=== PATIENT | female | born 1985 | race Native Hawaiian/Other Pacific Islander ===

== ENCOUNTER 2018-06-03 17:56 | Emergency (ER) | payer BC ==
[2018-06-03 18:05] VITALS: RESP 16; O2SAT 99
[2018-06-03 20:38] LABS: HEMOGLOBIN 12.4 g/dL (12.0-16.0); MEAN CELL VOLUME 87.6 fl (81.0-99.0); MEAN CORPUSCULAR HEMOGLOBIN 29.6 pg (27.0-31.0); MEAN CORPUSCULAR HGB CONC 33.8 g/dL (33.0-37.0); RBC 4.19 Mil/uL (3.80-5.20); RED CELL DISTRIBUTION WIDTH 12.2 % (11.5-14.5); WHITE BLOOD COUNT 10.4 K/uL (4.8-10.8)
[2018-06-03 20:53] LABS: BLOOD UREA NITROGEN 8 mg/dl (7-17); CALCIUM 9.6 mg/dL (8.4-10.2); GFR NON-AFRICAN AMERICAN > 60
--- NOTE | 2018-06-03 20:56 | ED PDOC ---
HPI: Female Pain Time Seen by Provider: 06/03/18 19:10 Chief Complaint (Nursing): Female Genitourinary Chief Complaint (Provider): vaginal bleeding and abdominal cramps History Per: Patient History/Exam Limitations: no limitations Onset/Duration Of Symptoms: Hrs (17:30) Current Symptoms Are (Timing): Still Present Quality Of Discomfort: Cramping Associated Symptoms: denies: Fever, Chills, Nausea, Vomiting, Diarrhea Additional Complaint(s): Eli Isabel is a 32 year old female, with a past medical history of bipolar disorder, who presents to the emergency department complaining of having heavy vaginal clotting and lower abdominal cramping onset since 17:30. Patient is [id number] at approximately x10 weeks gestation, LMP was on 03/19/18. Patient states pain and bleeding is subsiding but is still having some active vaginal bleeding. She denies any fever, chills, nausea, vomit or other medial complaints. PMD: None provided. Last Menstral Period: 03/19/18 : 1 Para: 0 Miscarriage: 0 Past Medical History Reviewed: Historical Data, Nursing Documentation, Vital Signs Vital Signs: Last Vital Signs Temp 98.3 F 06/03/18 18:04 Pulse 105 H 06/03/18 18:04 Resp 16 06/03/18 18:04 BP 117/78 06/03/18 18:04 Pulse Ox 99 06/03/18 18:04 - Medical History PMH: No Chronic Diseases - Surgical History Surgical History: No Surg Hx - Family History Family History: States: Unknown Family Hx - Allergies Allergies/Adverse Reactions: Allergies Allergy/AdvReac Type Severity Reaction Status Date / Time Sulfa (Sulfonamide Allergy RASH Verified 06/03/18 18:03 Antibiotics) Review of Systems ROS Statement: Except As Marked, All Systems Reviewed And Found Negative Constitutional: Negative for: Fever, Chills Gastrointestinal: Positive for: Abdominal Pain (cramps). Negative for: Nausea, Vomiting Genitourinary Female: Positive for: Vaginal Bleeding (clotting) Physical Exam - Reviewed Nursing Documentation Reviewed: Yes Vital Signs Reviewed: Yes - Physical Exam Appears: Positive for: No Acute Distress Head Exam: Positive for: ATRAUMATIC, NORMAL INSPECTION, NORMOCEPHALIC Skin: Positive for: Normal Color, Warm, Dry Eye Exam: Positive for: Normal appearance, EOMI, PERRL Neck: Positive for: Normal, Painless ROM Cardiovascular/Chest: Positive for: Regular Rate, Rhythm. Negative for: Murmur Respiratory: Positive for: Normal Breath Sounds. Negative for: Respiratory Distress Gastrointestinal/Abdominal: Positive for: Normal Exam, Soft. Negative for: Tenderness Back: Positive for: Normal Inspection. Negative for: L CVA Tenderness, R CVA Tenderness, Vertebral Tenderness Extremity: Positive for: Normal ROM (upper and lower extremities). Negative for: Deformity, Swelling Neurologic/Psych: Positive for: Alert, Oriented - Laboratory Results Result Diagrams: 06/03/18 20:20 06/03/18 20:20 - ECG O2 Sat by Pulse Oximetry: 99 (RA) Pulse Ox Interpretation: Normal Medical Decision Making Medical Decision Making: Time: 19:10 A/P: 32 y/o female in x10 weeks gestation presenting with vaginal bleeding. Vitals stable, otherwise well appearing but concerned for spontaneous AB vs thre atened AB vs ectopic AB. Initial Plan: --Type and screen --BMP --Beta-HCG, Quantitative --Urine --Urine dipstick --CBC --OB , Limited [US] --Reevaluation 20:58 Obstretrics Ultrasound Findings Uterus Single Live intrauterine gestation. CRL equivalent to 12 wks/0 days gestatioin Gestational sac diameter equivalent to 10 wks/0 days gestation Heart rate: 180 bpm. Ashley-gestational hemorrhage: None. Uterus measures 11.2 x 7.6 x 6 cm. No mass. Cervix Long and closed. No cervical abnormality seen. Right Ovary Measures 2.9 x 2.3 x 2 cm. No mass. Normal flow. Anechoic structure measures 1.2 x 1.3 x 0.9 cm. Left Ovary Not visualized. Free Fluid None. Other Findings None. Impression 1. Single live intrauterine gestation. 2. Right ovarian cystic structure. 22:02 Spoke with patient regarding diagnosis. Patient understands the importance of strict pelvic rest and no exertional activity until cleared by OB. Patient states she has an appointment with OB tomorrow. Scribe Attestation: Documented by Tuan Mattson, acting as a scribe for Michele Bautista MD. Provider Scribe Attestation: All medical record entries made by the Scribe were at my direction and personally dictated by me. I have reviewed the chart and agree that the record accurately reflects my personal performance of the history, physical exam, medical decision making, and the department course for this patient. I have also personally directed, reviewed, and agree with the discharge instructions and disposition. Disposition - Clinical Impression Clinical Impression: Vaginal bleeding during - Disposition Referrals: [facility] Chatterjee [Outside] Disposition: Routine/Home Disposition Time: 22:02 Condition: IMPROVED Additional Instructions: Please followup with your [facility] tomorrow as scheduled. Instructions: Threatened Miscarriage, Bleeding With (DC) Forms: [employer] (Macedonian)
[2018-06-04 01:41] VITALS: BP 118/74; PULSE 72; TEMP 98.4
--- NOTE | 2018-06-04 13:00 | US ---
Date of service: 06/03/2018 PROCEDURE: Limited obstetrical ultrasound HISTORY: 10 wks preg, VB COMPARISON: None TECHNIQUE: Standard protocol for this study/examination. FINDINGS: LMP: 03/19/2018 Prior examinations from the current : None TECHNIQUE: Real-time 2D imaging, duplex and color Doppler. FINDINGS: Cardiac activity: Present Rate: 180.0 BPM Measurements: [place] rump length: 5.40 cm Gestational age based on CRL 12 weeks Gestational age 10 weeks based on gestational sac measurement 4.49 cm Gestational age derived from LMP: 10 weeks 6 days [place] based on LMP: 12/24/2018 [place] based on biometry: 12/23/2018. Gestational concordance documented. Yolk sac not identified Cervix: No Cervical abnormalities: Negative examination for cervical dilatation or effacement. Closed cervix measuring 2.90 cm Subchorionic hemorrhage: None UTERUS: 6 x 7.6 x 11.0 cm. ADNEXA: Right: 2 x 2.3 x 2.9 cm. Simple cyst 1.2 x 1.3 cm. Normal Doppler arterial waveform documented. Left: Not visible Fluid in the cul-de-sac: None IMPRESSION: 11 weeks live intrauterine gestation. Gestational concordance documented. Simple cyst right adnexa. Limitations of the current examination: None visible left adnexal. Concordant findings (preliminary report) provided by [employer] [facility].
== END 2018-06-03 22:45 | disposition home or self-care (01) ==
LOC: H.ER 17:56
DX: O20.9 Hemorrhage in early pregnancy, unspecified (principal); Z3A.12 12 weeks gestation of pregnancy; N83.201 Unspecified ovarian cyst, right side; O34.81 Maternal care for other abnormalities of pelvic organs, first trimester